=== PATIENT | male | born 1965 | race Caucasian/White ===

== ENCOUNTER → 2020-01-11 12:26 | Outpatient (CLI) | payer OTHER, SELFPAY ==
--- NOTE | 2020-01-11 12:31 | DI.RAD.S_ITS ---
PROCEDURE: XR SHOULDER RT MIN 2V INDICATIONS: r shoulder pain TECHNIQUE: 3 views of the shoulder were acquired. COMPARISON: None. FINDINGS: Bones: No fractures or dislocations. No suspicious bony lesions. Visualized ribs appear intact. Glenohumeral joint degenerative change. Soft tissues: No suspicious soft tissue calcifications. IMPRESSION: Glenohumeral joint degenerative change. No evidence acute bony abnormality of the right shoulder. If clinical suspicion and/or symptoms persist, further assessment with repeat plain films, or advanced imaging (e.g., CT, MRI, or bone scan) may be helpful for further assessment. Dictated by: Mat Purcell M.D. on 01/11/2020 at 12:50 Approved by: Mat Purcell M.D. on 01/11/2020 at 12:51
== END ==
PROVIDERS: Referring Provider Physician Assistant; Visit Provider Physician Assistant
DX: M25.511 Pain in right shoulder (principal)
CPT/HCPCS: 73030